=== PATIENT | female | born 1965 | race Caucasian/White ===

== ENCOUNTER 2016-09-26 15:33 | Emergency (ER) | payer OTHER ==
[~2016-09-26] VITALS: Ht 162.6 cm; Wt 56.3 kg
[~2016-09-26 15:33] MED LIST: LEVOTHYROXINE50 MCG PO; MOTRIN600 MG PO; PERCOCET 5/31 TABLET PO
[2016-09-26 16:03] LABS: HEMATOCRIT 37.4 % (36.0-46.0); MCH 30.1 PG (29.0-34.0); MCV 88.6 FL (83-99); MEAN PLAT.VOLUME 9.2 uM^3 (9.5-12.4); PLATELET COUNT 248 K/uL (156-360); RBC DIS.WIDTH-CV 12.3 % (11.8-14.6); RBC DIS.WIDTH-SD 39.1 % (39-53); RED BLOOD COUNT 4.22 M/uL (3.80-5.20); WHITE BLOOD COUNT 5.5 K/uL (4.1-10.2)
[2016-09-26 16:11] LABS: CHLORIDE 106 mEq/L (99-109); POTASSIUM 3.7 mEq/L (3.7-5.4); SODIUM 140 mEq/L (136-147)
[2016-09-26 16:13] LABS: GLUCOSE 104 mg/dL (70-99)
[2016-09-26 16:14] LABS: ANION GAP 8 MEQ/L (2-14)
[2016-09-26 16:16] LABS: GFR ESTIMATE (CALCULATED) > 59 mL/min/
[2016-09-26 16:17] LABS: UREA NITROGEN (BUN) 16 mg/dL (9-23)
[2016-09-26] MEDS ORDERED: PROAIR HFA8.5 GM IH (16:22)
[2016-09-26] MEDS ORDERED: PULMICORT FLE180 MCG IH (16:22)
[2016-09-26 16:23] LABS: TROP-I INTERPRETATION NEGATIVE; TROPONIN-I < 0.01 ng/mL (0.0-0.30)
[2016-09-26 17:29] VITALS: BP 111/71
== END 2016-09-26 17:29 | disposition home or self-care (01) ==
LOC: EME 15:33
DX: M94.0 Chondrocostal junction syndrome [Tietze] (principal); R07.89 Other chest pain; Z88.2 Allergy status to sulfonamides
CPT/HCPCS: 71020; 80048; 84484; 85027; 93005; 99281; 99284

== ENCOUNTER 2017-01-30 23:18 | Emergency (ER) | payer OTHER ==
[~2017-01-30] VITALS: Ht 160 cm; Wt 55.7 kg
[~2017-01-30 23:18] MED LIST changes: +PROAIR HFA8.5 GM IH; +PULMICORT FLE180 MCG IH
[2017-01-31] MEDS ORDERED: AUGMENTIN875 MG PO (01:33)
[2017-01-31 01:41] VITALS: BP 118/72
== END 2017-01-31 01:41 | disposition home or self-care (01) ==
LOC: EME 23:18
PROC: 0HQMXZZ Repair Right Foot Skin, External Approach (ICD-10-PCS; principal; 2017-01-30)
PROC: 3E0234Z Introduction of Serum, Toxoid and Vaccine into Muscle, Percutaneous Approach (ICD-10-PCS; principal; 2017-01-30)
DX: S91.351A Open bite, right foot, initial encounter (principal); W54.0XXA Bitten by dog, initial encounter
CPT/HCPCS: 99281; 99284